=== PATIENT | female | born 1995 | race American Indian/Alaskan Native ===

== ENCOUNTER 2017-09-06 22:41 | Emergency (ER) | payer MEDICAID, OTHER ==
[2017-09-06 22:56] VITALS: BMI 31.8
[2017-09-06] MEDS ORDERED: Sodium Chloride 0.9% 1,000 ML IV STA (23:37)
--- NOTE | 2017-09-06 23:51 | ED PDOC ---
Arrival/HPI - General Chief Complaint: GI Problem Time Seen by Provider: 09/06/17 22:47 Historian: Patient - History of Present Illness Narrative History of Present Illness (Text): 09/06/17 23:10 22 year old female, with no significant past medical history, presents to the emergency department complaining of nausea and occasional episodes of vomiting this morning associated with abdominal discomfort. Patient states last night she had dumplings which she thinks may be the cause of her symptoms. Patient is also currently menstruating. Patient denies any fever, chills, chest pain, shortness of breath, diarrhea, urinary symptoms, back pain, neck pain, headache , dizziness, or any other complaints. Time/Duration: Other (this morning ) Symptom Onset: Sudden Symptom Course: Unchanged Activities at Onset: Light Context: Home Past Medical History - Provider Review Nursing Documentation Reviewed: Yes - Infectious Disease Hx of Infectious Diseases: None - Cardiac Hx Cardiac Disorders: No - Psychiatric Hx Substance Use: No - Anesthesia Hx Anesthesia: No - Suicidal Assessment Feels Threatened In Home Enviroment: No Family/Social History - Physician Review Nursing Documentation Reviewed: Yes Family/Social History: No Known Family HX Smoking Status: Light Smoker < 10 Cigarettes Daily Hx Alcohol Use: Yes Hx Substance Use: No Allergies/Home Meds Allergies/Adverse Reactions: Allergies No Known Allergies Allergy (Verified 09/06/17 22:57) Review of Systems - Physician Review All systems were reviewed & negative as marked: Yes - Review of Systems Constitutional: absent: Fevers Eyes: Normal Respiratory: absent: SOB Cardiovascular: absent: Chest Pain Gastrointestinal: Abdominal Pain, Nausea, Vomiting. absent: Diarrhea Genitourinary Female: absent: Dysuria, Frequency, Hematuria Musculoskeletal: absent: Back Pain, Neck Pain Neurological: absent: Headache, Dizziness Physical Exam Vital Signs Reviewed: Yes Vital Signs Temp Pulse Resp BP Pulse Ox 09/06/17 23:10 98.1 F 90 17 136/78 100 Temperature: Afebrile Blood Pressure: Normal Pulse: Regular Respiratory Rate: Normal Appearance: Positive for: Well-Appearing, Non-Toxic, Comfortable Pain Distress: None Mental Status: Positive for: Alert and Oriented X 3 - Systems Exam Head: Present: Atraumatic, Normocephalic Pupils: Present: PERRL Extroacular Muscles: Present: EOMI Conjunctiva: Present: Normal Mouth: Present: Moist Mucous Membranes Neck: Present: Normal Range of Motion Respiratory/Chest: Present: Clear to Auscultation, Good Air Exchange. No: Respiratory Distress, Accessory Muscle Use Cardiovascular: Present: Regular Rate and Rhythm, Normal S1, S2. No: Murmurs Abdomen: No: Tenderness, Distention, Peritoneal Signs Back: Present: Normal Inspection Upper Extremity: Present: Normal Inspection. No: Cyanosis, Edema Lower Extremity: Present: Normal Inspection. No: Edema Neurological: Present: GCS=15, CN II-XII Intact, Speech Normal Skin: Present: Warm, Dry, Normal Color. No: Rashes Psychiatric: Present: Alert, Oriented x 3, Normal Insight, Normal Concentration Medical Decision Making ED Course and Treatment: 09/06/17 23:51 Impression: 22 year old female presents complaining of nausea and occasional episode of vomiting this morning associated with abdominal discomfort. Plan: -- Labs -- Pepcid, IV Fluids, Zofran Inj -- HCG, Qualit Urine, Urinalysis -- Reassess and disposition Progress Notes: 09/07/17 02:45 On re-evaluation, patient feels better and is in no acute distress. I have discussed the results and plan with the patient, who expresses understanding. Patient in agreement with plan to be discharged home. Patient is stable for discharge. Patient was instructed to follow up with physician or return if symptoms worsen or new concerning symptoms arise. - Lab Interpretations Lab Results: 09/07/17 00:05 09/07/17 00:05 Lab Results 09/07/17 00:05: WBC 12.2 H, RBC 4.51, Hgb 14.2, Hct 41.6, MCV 92.2, MCH 31.5, MCHC 34.1, RDW 13.0, Plt Count 309, MPV 10.8 09/07/17 00:05: Sodium 141, Potassium 4.1, Chloride 101, Carbon Dioxide 26, Anion Gap 17, BUN 16, Creatinine 0.8, Est GFR ( Amer) > 60, Est GFR (Non- Af Amer) > 60, Random Glucose 89, Calcium 9.2, Total Bilirubin 0.6, AST 24, ALT 23, Alkaline Phosphatase 49, Total Protein 8.2, Albumin 4.4, Globulin 3.8, Albumin/Globulin Ratio 1.2, Lipase 66 09/06/17 23:46: Urine Color Yellow, Urine Appearance Cloudy, Urine pH 7.0, Ur Specific [place] 1.025, Urine Protein 30 H, Urine Glucose (UA) Negative, Urine Ketones Negative, Urine Blood Large H, Urine Nitrate Negative, Urine Bilirubin Negative, Urine Urobilinogen 0.2, Ur Leukocyte Esterase Trace H, Urine RBC 25 - 30, Urine WBC 5 - 10, Ur Epithelial Cells 6 - 8, Urine Bacteria Mod, Urine Other Utrans, Urine HCG, Qual Negative I have reviewed the lab results: Yes - Medication Orders Current Medication Orders: Discontinued Medications Famotidine (Pepcid) 20 mg IVP STAT STA Stop: 09/06/17 23:38 Last Admin: 09/07/17 00:06 Dose: 20 mg IVP Administration Document 09/07/17 00:06 IT (Rec: 09/07/17 00:06 IT [id number]) Charges for Administration # of IVP Administrations 1 Sodium Chloride (Sodium Chloride 0.9%) 1,000 mls @ 999 mls/hr IV .Q1H1M STA Stop: 09/07/17 00:37 Last Admin: 09/07/17 00:06 Dose: 999 mls/hr eMAR Start Stop Document 09/07/17 00:06 IT (Rec: 09/07/17 00:06 IT [id number]) Intravenous Solution Start Date 09/07/17 Start Time 00:06 Ondansetron HCl (Zofran Inj) 4 mg IVP ONCE ONE Stop: 09/06/17 23:38 Last Admin: 09/07/17 00:06 Dose: 4 mg IVP Administration Document 09/07/17 00:06 IT (Rec: 09/07/17 00:06 IT [id number]) Charges for Administration # of IVP Administrations 1 - Scribe Statement The provider has reviewed the documentation as recorded by the Juan Carrion Provider Scribe Attestation: All medical record entries made by the Scribkathrin were at my direction and personally dictated by me. I have reviewed the chart and agree that the record accurately reflects my personal performance of the history, physical exam, medical decision making, and the department course for this patient. I have also personally directed, reviewed, and agree with the discharge instructions and disposition. Disposition/Present on Arrival - Present on Arrival Any Indicators Present on Arrival: No History of DVT/PE: No History of Uncontrolled Diabetes: No Urinary Catheter: No History of Decub. Ulcer: No History Surgical Site Infection Following: None - Disposition Have Diagnosis and Disposition been Completed?: Yes Diagnosis: Gastritis Disposition: HOME/ ROUTINE Disposition Time: 02:47 Patient Plan: Discharge Patient Problems: Current Active Problems Problem Status Onset Gastritis Acute Condition: GOOD Discharge Instructions (ExitCare): Gastritis (DC) Additional Instructions: Drink small amounts liquids at a time/take meds as prescribed/advance diet slowly as tolerated/follow up with your doctor this week/any recurrent worsening symptoms return to the emergency room Prescriptions: Ondansetron [Zofran Odt] 4 mg PO Q6 PRN #12 odt PRN Reason: Nausea/Vomiting Forms: [facility] (German)
[2017-09-07 00:03] LABS: URINE BILIRUBIN NEGATIVE (NEGATIVE); URINE BLOOD LARGE (NEGATIVE); URINE GLUCOSE (UA) NEGATIVE (NEGATIVE); URINE LEUKOCYTE ESTERASE TRACE Leu/uL (NEGATIVE); URINE PROTEIN 30 mg/dL (<30 mg/dL); URINE UROBILINOGEN 0.2 E.U./dL (<1 E.U./dL)
[2017-09-07 00:04] LABS: URINE APPEARANCE CLOUDY (CLEAR); URINE COLOR YELLOW (YELLOW)
[2017-09-07 00:10] VITALS: RESP 17; O2SAT 100
[2017-09-07 00:30] LABS: HCG,QUALITATIVE URINE NEGATIVE (NEGATIVE); URINE BACTERIA MOD (NEG); URINE RBC 25 - 30 /hpf (0-2)
[2017-09-07 00:47] LABS: ALB/GLOB RATIO 1.2 (1.1-1.8); ALBUMIN 4.4 g/dL (3.0-4.8); ALT/SGPT 23 U/L (7-56); AST/SGOT 24 U/L (14-36); BLOOD UREA NITROGEN 16 mg/dL (7-21); CALCIUM 9.2 mg/dL (8.4-10.5); GFR AFRICAN-AMERICAN > 60; GFR NON-AFRICAN AMERICAN > 60; LIPASE 66 U/L (23-300)
[2017-09-07 01:00] LABS: HEMOGLOBIN 14.2 g/dL (12.0-16.0); MEAN CELL VOLUME 92.2 fl (80.0-105.0); MEAN CORPUSCULAR HEMOGLOBIN 31.5 pg (25.0-35.0); MEAN CORPUSCULAR HGB CONC 34.1 g/dl (31.0-37.0); MEAN PLATELET VOLUME 10.8 fl (7.0-11.0); RBC 4.51 10^6/uL (3.5-6.1); WHITE BLOOD COUNT 12.2 10^3/ul (4.5-11.0)
[2017-09-07 03:03] VITALS: BP 115/72; PULSE 75; TEMP 98.2
== END 2017-09-07 03:02 | disposition home or self-care (01) ==
LOC: ED 22:41
DX: K29.70 Gastritis, unspecified, without bleeding (principal); F17.210 Nicotine dependence, cigarettes, uncomplicated
CPT/HCPCS: 80053; 81001; 83690; 84703; 85027; 87086; 96374; 96375; 99284; J2405; J7040